=== PATIENT | male | born 1965 | race Caucasian/White ===

== ENCOUNTER 2016-10-23 04:35 | Emergency (ER) | payer OTHER | END 2016-10-23 05:38 | disposition home or self-care (01) | LOC: FER 04:35 | DX: M54.5 Low back pain (principal); Z88.2 Allergy status to sulfonamides | CPT/HCPCS: J1885 ==

== ENCOUNTER 2017-02-13 03:08 | Emergency (ER) | payer OTHER ==
[2017-02-13 03:47] LABS: BASOPHIL 0.1 % (0-2); EOSINOPHIL 0 % (0-5); HCT 44.4 % (42.0-52.0); HGB 15.7 g/dl (13.2-18.0); LYMPHOCYTE 8.3 % (15-48); MCH 29.8 pg (25.0-31.0); MCHC 35.4 g/dL (32.0-36.0); MCV 84.3 fL (78.0-100.0); MONOCYTE 3.4 % (0-12); MPV 10.7 fL (6.0-9.5); NEUTROPHIL 88.2 % (41-80); PLT 211 K/uL (150-400); RBC 5.27 M/uL (4.70-6.00); RDW 12.5 % (11.5-14.0); WBC 12.4 K/uL (4.0-10.5)
[2017-02-13 04:02] LABS: CREATININE 0.7 mg/dL (0.7-1.2); POTASSIUM 4.4 mmol/L (3.5-5.1)
== END 2017-02-13 04:34 | disposition home or self-care (01) ==
LOC: FER 03:08
PROVIDERS: Emergency Medicine
DX: T78.40XA Allergy, unspecified, initial encounter (principal); L03.113 Cellulitis of right upper limb; I10 Essential (primary) hypertension; E78.5 Hyperlipidemia, unspecified; Z88.2 Allergy status to sulfonamides; Z79.899 Other long term (current) drug therapy; W57.XXXA Bitten or stung by nonvenomous insect and other nonvenomous arthropods, initial encounter
CPT/HCPCS: 36415; 80048; 85025; J2930

== ENCOUNTER → 2020-10-24 | Day surgery (SDC) | payer OTHER ==
[~2020-10-24] VITALS: Ht 177.8 cm; Wt 113.4 kg
[~2020-10-24] MED LIST: PERCOCET 5-3251 EACH PO; PRAVACHOL20 MG PO; ZESTRIL40 MG PO
[2020-10-24 08:33] LABS: HCT 43.1 % (42.0-52.0); HGB 14.9 g/dl (13.2-18.0); MCHC 34.6 g/dL (32.0-36.0); MCV 86.9 fL (78.0-100.0); MPV 10.7 fL (6.0-9.5); RBC 4.96 M/uL (4.70-6.00); RDW 11.8 % (11.5-14.0)
[2020-10-24 08:59] LABS: ALBUMIN 3.7 g/dL (3.4-5.0); BILIRUBIN - TOTAL 0.3 mg/dL (0.2-1.0); BUN/CREAT RATIO (CALC) 16.7 RATIO; CREATININE 0.78 mg/dL (0.67-1.17); GLOBULIN (CALCULATION) 3.2 g/dL; POTASSIUM 4.1 mmol/L (3.5-5.1); TOTAL PROTEIN 6.9 g/dL (6.4-8.2)
== END | disposition home or self-care (01) ==
LOC: FAS 07:01
PROVIDERS: Orthopaedic Surgery
DX: S56.511A Strain of other extensor muscle, fascia and tendon at forearm level, right arm, initial encounter (principal); M77.8 Other enthesopathies, not elsewhere classified; I10 Essential (primary) hypertension; E78.5 Hyperlipidemia, unspecified; G47.30 Sleep apnea, unspecified; Z88.2 Allergy status to sulfonamides; Z79.899 Other long term (current) drug therapy; X58.XXXA Exposure to other specified factors, initial encounter
CPT/HCPCS: 0232T; 24358; 36415; 71045; 80053; 93005; J1885; J2250; J2405; J2704; J3010; J7120

== ENCOUNTER → 2021-01-23 | Day surgery (SDC) | payer OTHER ==
[~2021-01-23] VITALS: Ht 177.8 cm; Wt 117.9 kg
[2021-01-23 10:24] LABS: BUN/CREAT RATIO (CALC) 21.6 RATIO; CREATININE 0.74 mg/dL (0.67-1.17); POTASSIUM 4.5 mmol/L (3.5-5.1)
== END | disposition home or self-care (01) ==
LOC: FAS 09:30
PROVIDERS: Anesthesiology
DX: M75.121 Complete rotator cuff tear or rupture of right shoulder, not specified as traumatic (principal); M75.51 Bursitis of right shoulder; M19.011 Primary osteoarthritis, right shoulder; I10 Essential (primary) hypertension; G47.30 Sleep apnea, unspecified; Z20.822 Contact with and (suspected) exposure to COVID-19; Z88.2 Allergy status to sulfonamides; Z88.8 Allergy status to other drugs, medicaments and biological substances; Z98.1 Arthrodesis status; Z98.890 Other specified postprocedural states
CPT/HCPCS: 36415; 71045; 80048; C1713; J0171; J0690; J1170; J1885; J2250; J2704; J2795; J3010; J7120

== ENCOUNTER → 2021-06-12 | Day surgery (SDC) | payer OTHER ==
[~2021-06-12] VITALS: Ht 177.8 cm; Wt 117.9 kg
[~2021-06-12] MED LIST changes: +ZYRTEC10 M3 PO
[2021-06-12 10:42] LABS: HCT 43.1 % (42.0-52.0); HGB 14.8 g/dl (13.2-18.0); MCH 30.8 pg (25.0-31.0); MCHC 34.3 g/dL (32.0-36.0); MCV 89.8 fL (78.0-100.0); MPV 10.7 fL (6.0-9.5); RBC 4.8 M/uL (4.70-6.00); RDW 12.3 % (11.5-14.0); WBC 7.3 K/uL (4.0-10.5)
[2021-06-12 11:02] LABS: ALBUMIN 3.7 g/dL (3.4-5.0); BILIRUBIN - TOTAL 0.4 mg/dL (0.2-1.0); BUN/CREAT RATIO (CALC) 11.6 RATIO; CREATININE 0.86 mg/dL (0.67-1.17); GLOBULIN (CALCULATION) 3.2 g/dL; POTASSIUM 4.3 mmol/L (3.5-5.1); TOTAL PROTEIN 6.9 g/dL (6.4-8.2)
== END | disposition home or self-care (01) ==
LOC: FAS 07:45
PROVIDERS: Orthopaedic Surgery
DX: M75.101 Unspecified rotator cuff tear or rupture of right shoulder, not specified as traumatic (principal); T84.89XA Other specified complication of internal orthopedic prosthetic devices, implants and grafts, initial encounter; M19.011 Primary osteoarthritis, right shoulder
CPT/HCPCS: 36415; 71045; 80053; 93005; C1713; J0171; J0690; J1100; J2250; J2704; J2795; J3490; J7120

== ENCOUNTER → 2022-01-15 | Day surgery (SDC) | payer OTHER ==
[~2022-01-15] VITALS: Ht 177.8 cm; Wt 119.7 kg
[~2022-01-15] MED LIST changes: +NORCO 5-325 TA1 EACH PO
[2022-01-15 10:26] LABS: HCT 45.7 % (42.0-52.0); HGB 15.4 g/dl (13.2-18.0); MCH 30.1 pg (25.0-31.0); MCHC 33.7 g/dL (32.0-36.0); MCV 89.4 fL (78.0-100.0); MPV 10.4 fL (6.0-9.5); RBC 5.11 M/uL (4.70-6.00); RDW 12.2 % (11.5-14.0); WBC 6.4 K/uL (4.0-10.5)
[2022-01-15 10:59] LABS: BILIRUBIN - TOTAL 0.5 mg/dL (0.2-1.0); CREATININE 0.88 mg/dL (0.67-1.17); GLOBULIN (CALCULATION) 3.2 g/dL; POTASSIUM 3.9 mmol/L (3.5-5.1); TOTAL PROTEIN 7.2 g/dL (6.4-8.2)
== END | disposition home or self-care (01) ==
LOC: FAS 09:53
PROVIDERS: Surgery
DX: Z12.11 Encounter for screening for malignant neoplasm of colon (principal); D12.6 Benign neoplasm of colon, unspecified; K64.1 Second degree hemorrhoids; E78.5 Hyperlipidemia, unspecified; I10 Essential (primary) hypertension; Z88.2 Allergy status to sulfonamides; Z79.899 Other long term (current) drug therapy
CPT/HCPCS: 36415; 80053; J1100; J2704; J7120